=== PATIENT | female | born 1970 | race Caucasian/White ===

== ENCOUNTER → 2017-03-07 | Outpatient (CLI) | payer BC ==
--- NOTE | 2017-03-07 15:45 | Diagnostic Imaging Report ---
PROCEDURE:EXTREMITY ULTRASOUND COMPARISON:None. INDICATIONS:GROIN MASS TECHNIQUE:Grayscale and color Doppler ultrasound evaluation of the area of interest in right groin area was performed. FINDINGS: See conclusion. CONCLUSION: 3 x 3 x 3 mm subcutaneous indeterminate hypoechoic lesion in the medial superior right thigh with increased surrounding vascularity and possible internal flow on color Doppler. Alternatively, this could represent central necrosis of an approximately 1.2 x 0.6 cm mildly hypoechoic mass. Right lower extremity MRI with and without contrast can be obtained to better evaluate. Dictated by: Ladarius Alfaro M.D. on 03/07/2017 at 15:53 Electronically approved by: Ladarius Alfaro M.D. on 03/07/2017 at 15:53
== END ==
LOC: US 14:43
PROVIDERS: ATTEND Family Medicine
DX: R19.09 Other intra-abdominal and pelvic swelling, mass and lump (principal)
CPT/HCPCS: 76882

== ENCOUNTER → 2017-04-15 | Outpatient (CLI) | payer BC ==
[~2017-04-15] MED LIST: GADOBENATE DIMEGLUMINE 1 ML IV ONE
--- NOTE | 2017-04-15 11:43 | Diagnostic Imaging Report ---
EXAM: MRI PELVIS W WO CONTRAST INDICATION: Evaluation for possible right groin mass. COMPARISON: Ultrasound dated 03/07/2017. TECHNIQUE: Multiplanar and multisequence imaging was performed of the pelvis, before and after administration of 20 cc of MultiHance. DISCUSSION: GI TRACT: Visualized bowel loops are unremarkable. No evidence of bowel obstruction. PELVIS: Uterus is unremarkable. Normal zonal anatomy on sagittal T2-weighted images. No uterine mass. 2.2 x 1.2 cm right adnexal cyst without evidence of enhancement (series 5, image 33). Bladder is within normal limits. LYMPH NODES: No inguinal or pelvic sidewall lymphadenopathy. VESSELS: Unremarkable. BONES: Unremarkable. SOFT TISSUES: Unremarkable. IMPRESSION: No right groin mass. Subcutaneous medial superior right thigh lesion, noted on ultrasound dated 03/07/2017, is not visualized on today's exam, which might be resolved or outside the [id number]. Signed by: Dr. Ladarius Alfaro MD on 04/15/2017 11:39 AM
== END ==
LOC: MRI 07:31
PROVIDERS: ATTEND Family Medicine
DX: R19.09 Other intra-abdominal and pelvic swelling, mass and lump (principal)
CPT/HCPCS: 72197

== ENCOUNTER 2017-06-05 20:10 | Inpatient (IN) | payer BC ==
[~2017-06-05] VITALS: Ht 160 cm; Wt 106.7 kg
[2017-06-05] MEDS: SODIUM CHLORIDE 0.9% 1000ML 1,000 ML IV SCH (05:30)
--- OUTSIDE RECORDS SUMMARY | 2017-06-05 20:13 | XMS REPORT ---
Author Author Admin, [place] Organization [facility] Address Unknown Phone Unavailable Allergies, Adverse Reactions, Alerts Allergy Name Reaction Description Start Date Severity Status Provider CODEINE Critical Active Jorden Hahn MD Conditions or Problems Problem Name Problem Code Onset Date Status Entry Date Provider Comment Standard Description Annotate INSOMNIA DISORDER, EPISODIC Active Jorden Hahn MD Insomnia, unspecified DEPRESSIVE DISORDER, MAJOR, RECURRENT EPISODE, SEVERE Active Cristina Sharp LPC Major depressive disorder, recurrent episode, severe degree, without mention of psychotic behavior DEPRESSIVE DISORDER, UNSPECIFIED Active Cristina Sharp LPC ANXIETY DISORDER, UNSPECIFIED Active 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 Sharp 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 Anxiety state, unspecified Medication List Medication Instructions Start Date Stop Date Generic Name NDC Status Provider Patient Instruction BUSPIRONE HCL 10 MG ORAL TABLET Take 1 tab By Mouth Twice a Day BUSPIRONE HCL 75898771403 Active Jorden Hahn MD Active CYMBALTA 60 MG ORAL CAPSULE DELAYED RELEASE PARTICLES Take 1 tab By Mouth Every Morning DULOXETINE HCL 37584797891 Active Jorden Hahn MD Active KLONOPIN 0.5 MG ORAL TABLET Take 1 tab By Mouth every 8 hours As Needed for anxiety CLONAZEPAM 56340715019 Active Jorden Hahn MD Active LUNESTA 2 MG ORAL TABLET Take 1 tab By Mouth take at bedtime As Needed insomnia ESZOPICLONE 83813471468 Active Jorden Hahn MD Active LYRICA 50 MG ORAL CAPSULE PREGABALIN 67661973701 Active Jorden Hahn MD Active AMBIEN CR 6.25 MG ORAL TABLET EXTENDED RELEASE Take 1 tab By Mouth take at bedtime As Needed for insomnia ZOLPIDEM TARTRATE 85038038604 No Longer Active Jorden Hahn MD Active Vital Signs Date Name Value Unit Range Description blood pressure, diastolic 84 mm[Hg] BP nam blood pressure, systolic 125 mm[Hg] BP sys height E&M 62.50 [in_us] Bdy height pulse rate E&M 72 /min Heart rate weight E&M 225 [lb_av] Weight Measured blood pressure, diastolic 105 mm[Hg] BP nam blood pressure, systolic 162 mm[Hg] BP sys height E&M 62.50 [in_us] Bdy height pulse rate E&M 81 /min Heart rate weight E&M 229.80 [lb_av] Weight Measured Encounters Date Encounter Provider Code Facility 11:58:45 USER EXPERIENCE MANAGER Est Patient Exp Problem - 89579 Jorden Hahn MD CPT -56680 [facility] Procedures Code Procedure Name Date Entry Date Standard Description CPT-53777 Psychotherapy 45 (38-52*) min - 52445 (with patient and/or family member) 13:45:10 USER EXPERIENCE MANAGER CPT-91333 Psychotherapy 45 (38-52*) min - 03983 (with patient and/or family member) 16:00:40 USER EXPERIENCE MANAGER CPT-84036 Psychotherapy 45 (38-52*) min - 35959 (with patient and/or family member) 12:57:46 USER EXPERIENCE MANAGER CPT-44886 Diagnostic evaluation with medical - 23881 14:12:19 USER EXPERIENCE MANAGER CPT-84287 Psychotherapy 60 (53+*) min - 65212 (with patient and/or family member) 11:43:03 USER EXPERIENCE MANAGER CPT-05515 Psychotherapy 60 (53+*) min - 90010 (with patient and/or family member) 12:03:20 CDT CPT-68072 Psychotherapy 45 (38-52*) min - 08153 (with patient and/or family member) 13:59:49 CDT CPT-22344 Psychotherapy 45 (38-52*) min - 48928 (with patient and/or family member) 12:00:08 CDT CPT-33996 Diagnostic evaluation (no medical) - 40089 12:47:48 CDT
--- OUTSIDE RECORDS SUMMARY | 2017-06-05 20:13 | XMS REPORT | Clinical Summary ---
Author Author [facility] Organization [facility] Address Unknown Phone Unavailable Care Team Providers Care Header Up Name Role Phone Ledy George MD PCP Allergies Active Allergy Reactions Severity Noted Date Comments Codeine Itching Current Medications Prescription Sig. Disp. Refills Start End Date Status Date nitroglycerin (NITROSTAT) TK UTD PRN SUBLINGUAL 7 08/02/19 Active 0.4 MG SL tablet 17 levothyroxine (SYNTHROID, TK 1 T PO QD 5 07/30/19 Active LEVOXYL) 50 mcg tablet 17 TROKENDI XR 50 mg TK ONE C PO QD 3 07/29/19 Active capsule,extended release 17 24hr temazepam (RESTORIL) 15 TK 1 C PO QD HS PRN 2 08/02/19 Active mg capsule 17 metoprolol tartrate Take 25 mg by mouth 2 Active (LOPRESSOR) 25 mg tablet (two) times a day. aspirin 325 MG tablet Take 325 mg by mouth Active daily. FUROSEMIDE ORAL Take 10 mg by mouth. Active Active Problems Not on file Encounters Date Type Specialty Care Team Description 06/02/2017 Ancillary Edd Ramirez Left foot pain Orders MD Yenny 06/02/2017 Orders Only Ortho Sports Medicine Opal Johnson, Left foot pain (Primary MA Dx) 05/20/2017 Hospital Radiology Edd Ramirez Nondisp fx of 5th Encounter MD re Ramon unsp ft, init for opn fx 05/20/2017 Ancillary Radiology Edd Ramirez Nondisp fx of 5th Orders MD re Ramon unsp ft, init for opn fx 05/19/2017 Orders Only Ortho Sports Medicine Tip Christie MA 05/19/2017 Orders Only Ortho Sports Medicine Tip Christie MA Nondisp fx of 5th metatarsshaggy bone, unsp ft, init for opn fx (Primary Dx) 08/17/2016 Office Visit Neurology Severo Aragon MD Difficulty concentrating (Primary Dx); Numbness and tingling in both hands; Syncope, unspecified syncope type; Stenosis of intracranial vessel; Essential hypertension; Other hyperlipidemia; Coronary artery disease involving other coronary artery bypass graft 08/17/2016 Telephone Neurology Severo Aragon MD after 06/04/2016 Family History Medical History Relation Name Comments Heart attack Father Heart disease Father Diabetes Mother Heart attack Mother Heart disease Mother Relation Name Status Comments Father Mother Social History Tobacco Use Types Packs/Day Years Used Date Never Smoker Smokeless Tobacco: Never Used Alcohol Use Drinks/Week oz/Week Comments No Sex Assigned at Date Recorded Not on file Last Filed Vital Signs Vital Sign Reading Time Taken Blood Pressure 144/83 08/17/2016 12:45 PM CDT Pulse 44 08/17/2016 12:45 PM CDT Temperature - - Respiratory Rate - - Oxygen Saturation - - Inhaled Oxygen - - Concentration Weight 107 kg (235 lb 11.2 oz) 08/17/2016 12:45 PM CDT Height 160 cm (5' 3") 08/17/2016 12:45 PM CDT Body Mass Index 41.75 08/17/2016 12:45 PM CDT Plan of Treatment Date Type Specialty Care Team Description 06/08/2017 Office Visit [place] [address] [place] [id number] Health Maintenance Due Date Last Done Comments PAP SMEAR 01/05/1989 INFLUENZA VACCINE 09/07/2017 Results * XR Foot 3+ Vw Left (05/20/2017 11:30 AM) Specimen Performing Laboratory [facility] [address] [place] [address] Narrative EXAMINATION:XR FOOT 3VW LEFT CLINICAL HISTORY:S92.356B Nondisplaced fracture of fifth metatarsal bone unspecified footinitial encounter for open fracture, FRACTUREFOOT COMPARISON:None. IMPRESSION: There is a subacute fracture of the midportion of the left fifth metatarsal. There is no angulation or displacement. It is being to be some callus formation present although a fracture line is still identified. Clinical correlation is recommended as well as comparison to any prior old films [facility]-[id number] Procedure Note Hm Interface, Radiology Results Incoming - 05/20/2017 2:45 PM CDT EXAMINATION: XR FOOT 3 VW LEFT CLINICAL HISTORY: S92.356B Nondisplaced fracture of fifth metatarsal bone unspecified foot initial encounter for open fracture, FRACTURE FOOT COMPARISON: None. IMPRESSION: There is a subacute fracture of the midportion of the left fifth metatarsal. There is no angulation or displacement. It is being to be some callus formation present although a fracture line is still identified. Clinical correlation is recommended as well as comparison to any prior old films [facility]-[id number] after 06/04/2016 Insurance Payer Benefit Subscriber ID Type Phone Address Plan / Group BCBS BCBS xxxxxxxxxxxx PPO CHOICE PPO/TANYA CHAVEZ PPO
--- OUTSIDE RECORDS SUMMARY | 2017-06-05 20:13 | XMS REPORT ---
Author Author [facility] Address Unknown Phone Unavailable Care Team Providers Care Tuber Operator Name Role Phone TAYLER BELTRAN Unavailable Unavailable Problems This patient has no known problems. Allergies, Adverse Reactions, Alerts This patient has no known allergies or adverse reactions. Medications This patient has no known medications. Results Test Description Test Time Test Comments Text Results Atomic Results Result Comments MRI PELVIS WOW [place] [address] Patient Name: HAN PAGAN MR #: [id number] : 1970 Age/Sex: 47/F Req # : [id number] Adm Physician: Ordered by: TAYLER BELTRAN DO Report #: [id number] Location: MRI Room/Bed: Procedure: [id number] MRI/MRI PELVIS WOW Exam Date: Exam Time: REPORT STATUS: Signed EXAM: MRI PELVIS W WO CONTRAST INDICATION: Evaluation for possible right groin mass. COMPARISON: Ultrasound dated . TECHNIQUE: Multiplanar and multisequence imaging was performed of the pelvis, before and after administration of 20 cc of MultiHance. DISCUSSION: GI TRACT: Visualized bowel loops are unremarkable. No evidence of bowel obstruction. PELVIS: Uterus is unremarkable. Normal zonal anatomy on sagittal T2-weighted images. No uterine mass. 2.2 x 1.2 cm right adnexal cyst without evidence of enhancement (series 5, image 33). Bladder is within normal limits. LYMPH NODES: No inguinal or pelvic sidewall lymphadenopathy. VESSELS: Unremarkable. BONES: Unremarkable. SOFT TISSUES: Unremarkable. IMPRESSION: No right groin mass. Subcutaneous medial superior right thigh lesion, noted on ultrasound dated 03/07/2017, is not visualized on today's exam, which might be resolved or outside the [id number]. Signed by: Dr. Ladarius Rachel MD on 2017 11:39 AM Dictated By: LADARIUS RACHEL MD 113 Transcribed By: MOHSEN on 04/15/171138 COPY TO: TAYLER BELTRAN DO US EXTREMITY PERALES NON-VAS [place] [address] Patient Name: HAN PAGAN MR #: [id number] : 1970 Age/Sex: 47/F Req #: [id number] Adm Physician: Ordered by: TAYLER BELTRAN DO Report #: [id number] Location: US Room/Bed: Procedure: [id number] US/US EXTREMITY PERALES NON-VAS Exam Date: Exam Time: REPORT STATUS: Signed PROCEDURE: EXTREMITY ULTRASOUND COMPARISON: None. INDICATIONS: GROIN MASS TECHNIQUE: Grayscale and color Doppler ultrasound evaluation of the area of interest in right groin area was performed. FINDINGS: See conclusion. CONCLUSION: 3 x 3 x 3 mm subcutaneous indeterminate hypoechoic lesion in the medial superior right thigh with increased surrounding vascularity and possible internal flow on color Doppler. Alternatively, this could represent central necrosis of an approximately 1.2 x 0.6 cm mildly hypoechoic mass. Right lower extremity MRI with and without contrast can be obtained to better evaluate. Dictated by: Ladarius Rachel M.D. on 03/07/2017 at 15:53 Electronically approved by: Ladarius Rachel M.D. on 03/07/2017 at 15:53 Dictated By: LADARIUS RACHEL MD 1553 Transcribed By: JHON on 03/07/17 5404 COPY TO: TAYLER BELTRAN DO
[2017-06-05] MEDS ORDERED: METOPROLOL SUCC25 MG PO (20:43)
[2017-06-05] MEDS ORDERED: CRESTOR10 MG PO (20:43)
[2017-06-05] MEDS ORDERED: CLONAZEPAM0.5 MG PO (20:43)
[2017-06-05] MEDS ORDERED: LUNESTA3 MG PO (20:43)
[2017-06-05] MEDS ORDERED: BUSPIRONE HCL5 MG PO (20:43)
[2017-06-05] MEDS ORDERED: CYMBALTA20 MG PO (20:43)
[2017-06-05] MEDS ORDERED: KETOROLAC TROMETHAMINE 30 MG/ML VIAL IV STA (20:47)
[2017-06-05] MEDS ORDERED: KETOROLAC TROMETHAMINE 60 MG/2 ML VIAL IM ONE (21:30)
[2017-06-05 21:49] LABS: BASOPHILS # (AUTO) 0.1 (0.0-0.1); BASOPHILS % 0.5 % (0.0-1.0); EOSINOPHILS # (AUTO) 0.3 (0.0-0.4); EOSINOPHILS % 3.6 % (0.0-6.0); HEMATOCRIT 34.7 % (34.2-44.1); HEMOGLOBIN 10.8 g/dL (12.0-16.0); LYMPHOCYTES # (AUTO) 1.8 (1.0-3.2); LYMPHOCYTES % 19.8 % (18.0-39.1); MEAN CORPUSCULAR HEMOGLOBIN 26.7 pg (28-32); MEAN CORPUSCULAR HGB CONC 31.1 g/dL (31-35); MEAN CORPUSCULAR VOLUME 85.7 fL (81-99); MONOCYTES # (AUTO) 1.3 (0.2-0.8); MONOCYTES % 13.5 % (4.4-11.3); NEUTROPHILS # (AUTO) 5.8 (2.1-6.9); NEUTROPHILS % 62.4 % (38.7-80.0); PLATELET COUNT 222 x10e3/uL (140-360); RED BLOOD COUNT 4.05 x10e6/uL (3.6-5.1); RED CELL DISTRIBUTION WIDTH 14.9 % (11.7-14.4)
[2017-06-05 21:59] LABS: CLARITY,URINE SL CLOUDY (CLEAR); COLOR,URINE YELLOW (YELLOW)
[2017-06-05 22:00] LABS: BILIRUBIN,URINE 1+ (NEGATIVE); KETONES,URINE NEGATIVE (NEGATIVE); LEUKOCYTE ESTERASE ,URINE NEGATIVE (NEGATIVE); NITRITE,URINE NEGATIVE (NEGATIVE); PROTEIN,URINE DIPSTICK 1+ (NEGATIVE); URINE UROBILINOGEN 0.2 mg/dL (0.2 - 1)
[2017-06-05 22:14] LABS: RBC,URINE >50 /HPF (0-5)
[2017-06-05 22:18] LABS: BACTERIA,URINE RARE /HPF; WBC,URINE (MAN) 0-5 /HPF (0-5)
[2017-06-05 22:19] LABS: CALCIUM OXALATE CRYSTALS,UR FEW (FEW)
[2017-06-05 22:20] LABS: ALBUMIN 3.3 g/dL (3.5-5.0); ANION GAP 12.2 mmol/L (8-16); CALCIUM 8.6 mg/dL (8.4-10.2); CREATININE, SERUM 0.99 mg/dL (0.57-1.11); POTASSIUM 4.2 mmol/L (3.5-5.1)
--- NOTE | 2017-06-05 22:32 | Diagnostic Imaging Report ---
EXAM: CT Abdomen and Pelvis WITHOUT contrast INDICATION: Flank pain, stone COMPARISON: None. TECHNIQUE: Abdomen and pelvis were scanned utilizing a multidetector helical scanner from the lung base to the pubic symphysis without administration of IV contrast. Absence of intravenous contrast decreases sensitivity for detection of focal lesions and vascular pathology. Coronal and sagittal reformations were obtained. Stone protocol is performed. IV CONTRAST: None. ORAL CONTRAST: None RADIATION DOSE: Total DLP: 782.17 mGy*cm Estimated effective dose: (DLP x 0.015 x size factor) mSv COMPLICATIONS: None FINDINGS: LINES and TUBES: None. LOWER THORAX: Unremarkable HEPATOBILIARY: No focal hepatic lesions. No biliary ductal dilation. GALLBLADDER: There are cholecystectomy clips. SPLEEN: No splenomegaly. PANCREAS: No focal masses or ductal dilatation. ADRENALS: No adrenal nodules KIDNEYS/URETERS: Right-sided hydroureteronephrosis secondary to a 6 mm stone in the distal right ureter best seen on series 3, image 139 and coronal series 401, image 52. No cystic or solid mass lesions. GI TRACT: Postsurgical changes related to bariatric surgery of the stomach. No abnormal distention, wall thickening, or evidence of bowel obstruction. There are diverticula within the colon without evidence of diverticulitis. Appendix is normal. PELVIC ORGANS/BLADDER: Unremarkable. LYMPH NODES: No lymphadenopathy. VESSELS: There is mild atherosclerotic disease in the aorta and major arterial branches. PERITONEUM / RETROPERITONEUM: No free air or fluid. BONES: Unremarkable. SOFT TISSUES: Unremarkable. IMPRESSION: 1. Obstructive 6 mm stone in the distal right ureter with developing moderate to severe hydroureteronephrosis. Signed by: Dr. Edd Whiteside M.D. on 06/05/2017 10:29 PM
[2017-06-05] MEDS ORDERED: CEFTRIAXONE SOD 1 GM VIAL IV SCH (23:15)
[2017-06-05] MEDS ORDERED: ONDANSETRON HCL INJ 2 MG/ML VIAL IV PRN (23:15)
[2017-06-05 23:16] LABS: EPITHELIAL CELLS,URINE RARE /LPF
--- OUTSIDE RECORDS SUMMARY | 2017-06-05 23:19 | XMS REPORT | Clinical Summary ---
Author Author [facility] Organization [facility] Address Unknown Phone Unavailable Care Team Providers Care Bookstore Manager Name Role Phone Ledy George MD PCP [...] [place] [address] [place] [id number] Health Maintenance Due Date Last Done Comments PAP SMEAR 01/05/1989 INFLUENZA VACCINE 09/07/2017 Results * XR Foot 3+ Vw Left (05/20/2017 11:30 AM) Specimen Performing Laboratory [facility] [address] [place] [address] Narrative EXAMINATION:XR FOOT 3VW LEFT CLINICAL HISTORY:S92.356B [...] as comparison to any prior old films [facility]-[id number] Procedure Note Hm Interface, Radiology Results Incoming [...] as comparison to any prior old films [facility]-[id number] after 06/04/2016 Insurance Payer Benefit Subscriber ID Type Phone Address Plan / Group BCBS BCBS xxxxxxxxxxxx PPO CHOICE PPO/TANYA CHAVEZ PPO
--- OUTSIDE RECORDS SUMMARY | 2017-06-05 23:20 | XMS REPORT ---
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 Anxiety state, unspecified Medication List Medication Instructions Start Date Stop Date Generic Name NDC Status Provider Patient Instruction BUSPIRONE HCL 10 MG ORAL TABLET Take 1 tab By Mouth Twice a Day BUSPIRONE HCL 49753423244 Active Jorden Hahn MD Active CYMBALTA 60 MG ORAL CAPSULE DELAYED RELEASE PARTICLES Take 1 tab By Mouth Every Morning DULOXETINE HCL 69607440174 Active Jorden Hahn MD Active KLONOPIN 0.5 MG ORAL TABLET Take 1 tab By Mouth every 8 hours As Needed for anxiety CLONAZEPAM 65611829306 Active Jorden Hahn MD Active LUNESTA 2 MG ORAL TABLET Take 1 tab By Mouth take at bedtime As Needed insomnia ESZOPICLONE 02698708610 Active Jorden Hahn MD Active LYRICA 50 MG ORAL CAPSULE PREGABALIN 08948231093 Active Jorden Hahn MD Active AMBIEN CR 6.25 MG ORAL TABLET EXTENDED RELEASE Take 1 tab By Mouth take at bedtime As Needed for insomnia ZOLPIDEM TARTRATE 77953571225 No Longer Active Jorden Hahn MD Active [...] Encounters Date Encounter Provider Code Facility 11:58:45 HUMAN RESOURCES VICE PRESIDENT Est Patient Exp Problem - 15382 Jorden Hahn MD CPT -10004 [facility] Procedures Code Procedure Name Date Entry Date Standard Description CPT-90876 Psychotherapy 45 (38-52*) min - 76766 (with patient and/or family member) 13:45:10 HUMAN RESOURCES VICE PRESIDENT CPT-04628 Psychotherapy 45 (38-52*) min - 52122 (with patient and/or family member) 16:00:40 HUMAN RESOURCES VICE PRESIDENT CPT-67862 Psychotherapy 45 (38-52*) min - 00109 (with patient and/or family member) 12:57:46 HUMAN RESOURCES VICE PRESIDENT CPT-80201 Diagnostic evaluation with medical - 22303 14:12:19 HUMAN RESOURCES VICE PRESIDENT CPT-54696 Psychotherapy 60 (53+*) min - 22684 (with patient and/or family member) 11:43:03 HUMAN RESOURCES VICE PRESIDENT CPT-91527 Psychotherapy 60 (53+*) min - 72020 (with patient and/or family member) 12:03:20 CDT CPT-21954 Psychotherapy 45 (38-52*) min - 38792 (with patient and/or family member) 13:59:49 CDT CPT-45910 Psychotherapy 45 (38-52*) min - 88120 (with patient and/or family member) 12:00:08 CDT CPT-73634 Diagnostic evaluation (no medical) - 83613 12:47:48 CDT
[2017-06-06] VITALS (9 sets, daily range): BP systolic 94–168; BP diastolic 51–78
[2017-06-06] MEDS ORDERED: LYRICA50 MG PO (01:53)
[2017-06-06] MEDS ORDERED: LEVOTHYROXINE50 MCG PO (01:53)
--- NOTE | 2017-06-06 03:11 | Diagnostic Imaging Report ---
EXAMINATION: CHEST XRAY LINE PLACEMENT INDICATION: PICC line placement COMPARISON: None FINDINGS: TUBES and LINES: Right upper extremity PICC line is visualized with catheter tip at the level of the right innominate junction and origin of the IVC LUNGS: Lungs are well inflated. Lungs are clear. There is no evidence of pneumonia or pulmonary edema. PLEURA: No pleural effusion or pneumothorax. HEART AND MEDIASTINUM: Cardiac size is mildly enlarged. Midline sternotomy wires are intact. BONES AND SOFT TISSUES: No acute osseous lesion. Soft tissues are unremarkable. UPPER ABDOMEN: No free air under the diaphragm. IMPRESSION: 1. No acute thoracic abnormality. 2. Right upper extremity PICC line with tip at the junction of the right innominate vein and origin of the IVC. Minimal advancement is recommended Signed by: Dr. Edd Whiteside M.D. on 06/06/2017 3:07 AM
--- NOTE | 2017-06-06 04:28 | Diagnostic Imaging Report ---
EXAMINATION: CHEST XRAY LINE PLACEMENT INDICATION: PICC line placement COMPARISON: 06/06/2017 at 2:56 AM FINDINGS: TUBES and LINES: Right upper extremity PICC line has been advanced with distal tip at the proximal SVC. LUNGS: Lungs are well inflated. Lungs are clear. There is no evidence of pneumonia or pulmonary edema. PLEURA: No pleural effusion or pneumothorax. HEART AND MEDIASTINUM: Cardiac size is moderately enlarged. There are atherosclerotic calcifications within the aorta. BONES AND SOFT TISSUES: No acute osseous lesion. Soft tissues are unremarkable. UPPER ABDOMEN: No free air under the diaphragm. IMPRESSION: No acute thoracic abnormality. Signed by: Dr. Edd Whiteside M.D. on 06/06/2017 4:25 AM
[2017-06-06] MEDS: HYDROMORPHONE 1MG/1ML INJ IV PRN ×4 (04:55→20:18)
[2017-06-06 05:53] LABS: BASOPHILS # (AUTO) 0.1 (0.0-0.1); BASOPHILS % 0.6 % (0.0-1.0); EOSINOPHILS # (AUTO) 0.4 (0.0-0.4); EOSINOPHILS % 4.2 % (0.0-6.0); HEMATOCRIT 34.4 % (34.2-44.1); HEMOGLOBIN 10.8 g/dL (12.0-16.0); LYMPHOCYTES % 24.1 % (18.0-39.1); MEAN CORPUSCULAR HGB CONC 31.4 g/dL (31-35); MONOCYTES # (AUTO) 1.1 (0.2-0.8); MONOCYTES % 13.1 % (4.4-11.3); NEUTROPHILS # (AUTO) 4.8 (2.1-6.9); NEUTROPHILS % 57.6 % (38.7-80.0); PLATELET COUNT 234 x10e3/uL (140-360); RED CELL DISTRIBUTION WIDTH 14.8 % (11.7-14.4)
[2017-06-06 06:20] LABS: ALBUMIN 3.3 g/dL (3.5-5.0); ALBUMIN/GLOBULIN RATIO 1.2 (0.8-2.0); ANION GAP 12.2 mmol/L (8-16); CALCIUM 8.6 mg/dL (8.4-10.2); CREATININE, SERUM 1.01 mg/dL (0.57-1.11); POTASSIUM 4.2 mmol/L (3.5-5.1)
[2017-06-06] MEDS: SODIUM CHLORIDE 0.9% 1000ML 1,000 ML IV SCH ×3 (07:06→23:55)
[2017-06-06] MEDS ORDERED: IOPAMIDOL 610MG/1ML 300 MG/ML VIAL IV ONE (12:02)
--- NOTE | 2017-06-06 13:11 | Operative Report ---
DATE OF PROCEDURE: June 06, 2017 PREOPERATIVE DIAGNOSIS 1. Right hydronephrosis. 2. Microscopic hematuria. POSTOPERATIVE DIAGNOSIS 1. Right hydronephrosis. 2. Microscopic hematuria. PROCEDURES 1. Cystourethroscopy with left ureteral catheterization and left retrograde pyelogram (entirely separate procedure for the microscopic hematuria). 2. Cystourethroscopy with the insertion of a right indwelling ureteral stent (entirely separate procedure for the diagnosis of right hydronephrosis). 3. Supervision of fluoroscopy. 4. Interpretation of retrograde pyelography. ANESTHESIA: General. ESTIMATED BLOOD LOSS: Minimal. COMPLICATIONS: None. INDICATIONS FOR PROCEDURE: Ms. Dalton is a 47-year-old female with a very large obstructing distal ureteral calculus. She and I had a long discussion regarding the alternatives, risks and benefits. She voiced understanding of the options, of the alternatives, of the risks and the benefits and elected to proceed. PROCEDURE IN DETAIL: After informed consent was obtained, the patient was taken to the operative suite and placed supine on the operating table and underwent general anesthesia by the anesthesia service. She was then placed in the dorsal lithotomy position and sterilely prepped and draped in the standard fashion for cystoscopy. A 22.5-Irish cystoscope was inserted per urethra, and a normal urethra was noted. Panendoscopy of the bladder revealed no tumors, no stones. Both ureteral orifices were in their normal anatomical location and position and were seen to efflux clear urine. Bilateral retrograde pyelograms were performed. The left revealed normal. The right revealed a 6 x 7 mm distal ureteral calculus with proximal hydronephrosis. Postoperative views on the right side revealed the stent in good position. The bladder was drained, and the patient was awakened from anesthesia and transported to the recovery room in excellent condition. SUPERVISION OF FLUOROSCOPY AND INTERPRETATION OF RETROGRADE PYELOGRAPHY: I was present throughout the entire procedure, and I supervised the use of fluoroscopy. There was no radiologist present. Attention was turned toward the left and right ureteral orifices, which were catheterized with an 8-Irish cone-tipped catheter. In a retrograde fashion, contrast was injected, revealing delicate ureters, delicate bilateral caliceal systems on the left. On the right, there was a 6 x 7 mm distal ureteral calculus with proximal hydronephrosis and a stent in adequate position. IMPRESSION 1. Right ureteral calculus. 2. Right hydronephrosis. 3. Right ureteral stent in adequate position. 4. Normal left retrograde pyelogram. Job#: [id number] EV cc:NALDO BELTRAN DO
[2017-06-06] MEDS ORDERED: CLONAZEPAM 0.5 MG TAB PO PRN (14:15)
[2017-06-06] MEDS ORDERED: ONDANSETRON HCL INJ 2 MG/ML VIAL ONE (17:37)
[2017-06-06] MEDS ORDERED: DEXAMETHASONE SOD PHOS INJ 4 MG/ML VIAL ONE (17:37)
[2017-06-06] MEDS ORDERED: PROPOFOL IV EMULSION 10 MG/ML 20 ML VIAL ONE (17:37)
[2017-06-06] MEDS ORDERED: LIDOCAINE HCL 2% LOCAL INJ 5 ML SDV VIAL INJ ONE (17:37)
[2017-06-06] MEDS ORDERED: SEVOFLURANE INHAL SOLN 250 ML PEN BTL ONE (17:37)
[2017-06-06] MEDS ORDERED: FENTANYL CITRATE/PF 100MCG/2 ML INJ ONE (17:46)
[2017-06-06] MEDS ORDERED: MIDAZOLAM HCL 2 MG/2 ML VIAL ONE (17:46)
[2017-06-06] MEDS: METOPROLOL SUCCINATE 25 MG TAB XL PO SCH (20:17)
[2017-06-06] MEDS: PREGABALIN 50 MG CAP PO SCH (20:17)
[2017-06-06] MEDS: BUSPIRONE HCL 5 MG TAB PO SCH (20:17)
[2017-06-06] MEDS: SIMVASTATIN 20 MG TAB PO SCH (20:18)
[2017-06-06] MEDS ORDERED: NON-FORMULARY MEDICATION (Eszopiclone (Lunesta) 3 MG) PO SCH (21:00)
--- NOTE | 2017-06-06 21:01 | Consultation ---
DATE OF CONSULTATION: June 06, 2017 UROLOGY CONSULTATION REASON FOR CONSULTATION: Kidney stones and colic. HISTORY OF PRESENT ILLNESS: Ms. Dalton is a very pleasant, 47-year-old female with acute onset of sharp, severe right-sided flank pain. She denied dysuria. She had gross hematuria. PAST MEDICAL HISTORY: Significant for hypertension, OH, anxiety, hyperlipidemia, cholecystectomy, CABG, PCI. MEDICATIONS: Please see MAR. ALLERGIES: NKDA. SOCIAL HISTORY: She does not smoke or drink. FAMILY HISTORY: Denied urologic stones or malignancies. PHYSICAL EXAMINATION: GENERAL: An elderly female in no acute distress. VITALS: Temperature 97.9. Pulse 85. Respirations 18. Blood pressure 128/59. HEENT: Sclerae not icteric. NECK: Supple. BACK: Without costovertebral angle tenderness bilaterally. ABDOMEN: Soft, obese, nontender, nondistended. No masses. No palpable hernias. No palpable lymphadenopathy. : Normal female genitalia. EXTREMITIES: No edema. NEURO: Moves 4 extremities. PSYCH: Alert and oriented. SKIN: Intact. Normal color. PERTINENT LABORATORY DATA: CT scan revealing a 6 mm right distal ureteral calculus, right hydronephrosis. CBC was normal except for hemoglobin 10.8. BNP was normal except for mild hypochloremia at 111. Urinalysis 50 to 100 reds, 0 to 5 whites. IMPRESSION: 1. Right ureteral calculus. 2. Right hydronephrosis. 3. Microscopic hematuria. 4. Question of urinary tract infection. 5. Anemia. 6. Hypochloremia. 7. Obesity. 8. Renal colic. 9. Coagulopathy, medically induced. PLAN: The patient will need stenting. I will place a stent and have the patient follow up as an outpatient for elective ureteroscopy as an outpatient. Thank you for allowing me to participate in the care of your patient. We will be happy to follow along with you. Job#: [id number]
[2017-06-06] MEDS: ZOLPIDEM TARTRATE 10 MG TAB PO SCH (21:50)
[2017-06-06] MEDS ORDERED: MAGNESIUM/ALUMINUM/SIMETHICONE 30 ML UDC PO PRN (22:15)
[2017-06-06] MEDS: PANTOPRAZOLE SOD 40 MG TABEC PO SCH (22:44)
[2017-06-07] VITALS (8 sets, daily range): BP systolic 109–191; BP diastolic 57–86
[2017-06-07] MEDS: HYDROMORPHONE 1MG/1ML INJ IV PRN ×5 (01:16→19:51)
[2017-06-07] MEDS: CEFTRIAXONE SOD 1 GM VIAL IV SCH (04:39)
[2017-06-07] MEDS: LEVOTHYROXINE SODIUM 50 MCG TAB PO SCH (05:29)
[2017-06-07] MEDS ORDERED: TRAMADOL HCL 50 MG TAB PO PRN (07:30)
[2017-06-07] MEDS: BUSPIRONE HCL 5 MG TAB PO SCH ×2 (07:45→21:22)
[2017-06-07] MEDS: PREGABALIN 50 MG CAP PO SCH ×2 (07:45→21:22)
[2017-06-07] MEDS: METOPROLOL SUCCINATE 25 MG TAB XL PO SCH ×2 (07:45→21:22)
[2017-06-07] MEDS: PANTOPRAZOLE SOD 40 MG TABEC PO SCH (07:45)
[2017-06-07] MEDS: DULOXETINE HCL 30 MG DELAYED RELEASE PO SCH (07:45)
[2017-06-07] MEDS ORDERED: SIMVASTATIN 40 MG TAB PO SCH (09:00)
[2017-06-07] MEDS ORDERED: DULOXETINE HCL 20 MG DELAYED RELEASE PO SCH (09:00)
[2017-06-07] MEDS: SODIUM CHLORIDE 0.9% 1000ML 1,000 ML IV SCH ×2 (09:53→21:39)
[2017-06-07] MEDS: HYDROCODONE/APAP 7.5MG-325MG 1 EA TAB PO PRN ×2 (14:07→18:09)
[2017-06-07] MEDS: SIMVASTATIN 20 MG TAB PO SCH (21:22)
[2017-06-07] MEDS: ZOLPIDEM TARTRATE 10 MG TAB PO SCH (21:22)
[2017-06-08] VITALS: BP 136/59
[2017-06-08] MEDS: HYDROCODONE/APAP 7.5MG-325MG 1 EA TAB PO PRN ×2 (02:30→08:20)
[2017-06-08] MEDS: HYDROMORPHONE 1MG/1ML INJ IV PRN ×2 (03:37→11:40)
[2017-06-08 04:00] VITALS: BP 145/65
[2017-06-08] MEDS: LEVOTHYROXINE SODIUM 50 MCG TAB PO SCH (05:43)
[2017-06-08] MEDS: SODIUM CHLORIDE 0.9% 1000ML 1,000 ML IV SCH ×2 (05:43→13:33)
[2017-06-08] MEDS: CEFTRIAXONE SOD 1 GM VIAL IV SCH (05:43)
[2017-06-08 08:02] VITALS: BP 132/61
[2017-06-08 08:20] VITALS: BP 132/61
[2017-06-08] MEDS: DULOXETINE HCL 30 MG DELAYED RELEASE PO SCH (08:20)
[2017-06-08] MEDS: BUSPIRONE HCL 5 MG TAB PO SCH (08:20)
[2017-06-08] MEDS: METOPROLOL SUCCINATE 25 MG TAB XL PO SCH (08:20)
[2017-06-08] MEDS: PANTOPRAZOLE SOD 40 MG TABEC PO SCH (08:20)
[2017-06-08] MEDS: PREGABALIN 50 MG CAP PO SCH (08:21)
[2017-06-08] MEDS ORDERED: ONDANSETRON HCL 4 MG ORAL DISINTEGRATING TAB PO PRN (11:30)
[2017-06-08] MEDS: OXYBUTYNIN CHLORIDE 5 MG TAB PO SCH ×2 (11:40→16:54)
[2017-06-08 12:54] VITALS: BP 108/52
[2017-06-08] MEDS: METHOCARBAMOL 500 MG TAB PO SCH ×2 (13:30→17:55)
[2017-06-08] MEDS: HYDROCODONE/APAP 10MG-325MG TAB PO PRN ×2 (13:33→17:55)
[2017-06-08] MEDS ORDERED: ULTRAM50 MG PO (16:05)
[2017-06-08] MEDS ORDERED: ceftin PO (16:09)
[2017-06-08] MEDS ORDERED: robaxin PO (16:09)
[2017-06-08] MEDS ORDERED: NORCO 10-325 T1 EACH PO (16:10)
[2017-06-08] MEDS ORDERED: ditropan PO (16:12)
[2017-06-08 16:48] VITALS: BP 129/60
[2017-06-15] MEDS ORDERED: ASPIRIN325 MG PO (11:23)
== END 2017-06-08 18:40 | disposition home or self-care (01) | DRG 660 ==
LOC: ER 20:10 → ERHOLD 23:17 → MED/SURG 06-06 00:08
PROC: 0T778ZZ Dilation of Left Ureter, Via Natural or Artificial Opening Endoscopic (ICD-10-PCS; 2017-06-06)
PROC: BT141ZZ Fluoroscopy of Kidneys, Ureters and Bladder using Low Osmolar Contrast (ICD-10-PCS; 2017-06-06)
PROC: 02HV33Z Insertion of Infusion Device into Superior Vena Cava, Percutaneous Approach (ICD-10-PCS; 2017-06-06)
PROC: B5181ZA Fluoroscopy of Superior Vena Cava using Low Osmolar Contrast, Guidance (ICD-10-PCS; 2017-06-06)
PROC: 05H333Z Insertion of Infusion Device into Right Innominate Vein, Percutaneous Approach (ICD-10-PCS; 2017-06-06)
PROC: B51M1ZA Fluoroscopy of Right Upper Extremity Veins using Low Osmolar Contrast, Guidance (ICD-10-PCS; 2017-06-06)
PROC: 0T768DZ Dilation of Right Ureter with Intraluminal Device, Via Natural or Artificial Opening Endoscopic (ICD-10-PCS; principal; 2017-06-06 10:00)
DX: N13.2 Hydronephrosis with renal and ureteral calculous obstruction (principal); D68.8 Other specified coagulation defects; Z68.41 Body mass index [BMI] 40.0-44.9, adult; I25.10 Atherosclerotic heart disease of native coronary artery without angina pectoris; Z95.1 Presence of aortocoronary bypass graft; Z95.5 Presence of coronary angioplasty implant and graft; I25.2 Old myocardial infarction; E78.5 Hyperlipidemia, unspecified; E87.8 Other disorders of electrolyte and fluid balance, not elsewhere classified; D64.9 Anemia, unspecified; R31.29 Other microscopic hematuria; Z98.84 Bariatric surgery status; E66.9 Obesity, unspecified
CPT/HCPCS: 36415; 36569; 71045; 74176; 74420; 80053; 81001; 81025; 82150; 83690; 85025; 87086; 93005; 96372; 99284; J0696; J1100; J1170; J1885; J2001; J2250; J2405; J7030

== ENCOUNTER 2017-06-20 12:59 | Emergency (ER) | payer BC ==
[~2017-06-20] VITALS: Ht 160 cm; Wt 106.6 kg
[~2017-06-20 12:59] MED LIST changes: -CEFTRIAXONE SOD 1 GM VIAL ONE; -DEXAMETHASONE SOD PHOS INJ 4 MG/ML VIAL ONE; -EPHEDRINE SULFATE INJ 50 MG/10 ML SYR ONE; -FENTANYL CITRATE/PF 100MCG/2 ML INJ ONE; -IOPAMIDOL 610MG/1ML 300 MG/ML VIAL IV ONE; -LIDOCAINE HCL 2% LOCAL INJ 5 ML SDV VIAL INJ ONE; -MIDAZOLAM HCL 2 MG/2 ML VIAL ONE; -ONDANSETRON HCL INJ 2 MG/ML VIAL ONE; -PROPOFOL IV EMULSION 10 MG/ML 20 ML VIAL ONE; -SEVOFLURANE INHAL SOLN 250 ML PEN BTL ONE
--- OUTSIDE RECORDS SUMMARY | 2017-06-20 13:02 | XMS REPORT | Clinical Summary ---
Author Author [facility] Organization [facility] Address Unknown Phone Unavailable Care Team Providers Care Oxygen Therapy Teacher Name Role Phone Ledy George MD PCP [...] [place] [address] [facility] [address] [place] [address] Health Maintenance Due Date Last Done Comments PAP SMEAR 01/05/1989 INFLUENZA VACCINE 09/07/2017 Results * XR Foot 3+ Vw Left (06/13/2017 3:37 PM) Only the most recent of 2 results within the time period is included. Specimen Performing Laboratory [facility] [address] [place] [address] Narrative EXAMINATION:XR FOOT 3VW LEFT CLINICAL HISTORY:M79.672 Pain in left foot, BONE PAINFOOT COMPARISON:Left foot series 05/20/2017 IMPRESSION: AP, lateral, and oblique views reveal the previously described fracture at the fifth metatarsal without interval change in apposition or alignment of the fracture fragments. The remainder of the examination is unchanged. [facility]-[id number] Procedure Note Interface, Radiology Results Incoming - [...] The remainder of the examination is unchanged. [facility]-[id number] after 06/19/2016 Insurance Payer Benefit Subscriber ID Type Phone Address Plan / Group BCBS BCBS xxxxxxxxxxxx PPO CHOICE P[place] [address]
--- OUTSIDE RECORDS SUMMARY | 2017-06-20 13:03 | XMS REPORT ---
Author Author Admin, [place] Organization [facility] Address Unknown Phone Unavailable Allergies, Adverse Reactions, Alerts Allergy Name Reaction Description Start Date Severity Status Provider CODEINE Critical Active Jorden Hahn MD Conditions or Problems Problem Name Problem Code Onset Date Status Entry Date Provider Comment Standard Description Annotate INSOMNIA DISORDER, EPISODIC Active Jorden Hanh MD Insomnia, unspecified DEPRESSIVE DISORDER, MAJOR, RECURRENT EPISODE, SEVERE Active Cristina Sharp LPC Major depressive disorder, recurrent episode, severe degree, without mention of psychotic behavior DEPRESSIVE DISORDER, UNSPECIFIED Active Cristina Sharp LPC ANXIETY DISORDER, UNSPECIFIED Active Cristina Sharp [employer]LECT[employer]IC[employer] SECOND Anxiety state, unspecified Medication List Medication Instructions Start Date Stop Date Generic Name NDC Status Provider Patient Instruction BUSPIRONE HCL 10 MG ORAL TABLET Take 1 tab By Mouth Twice a Day BUSPIRONE HCL 44330406888 Active Jorden Hahn MD Active CYMBALTA 60 MG ORAL CAPSULE DELAYED RELEASE PARTICLES Take 1 tab By Mouth Every Morning DULOXETINE HCL 09828370005 Active Jorden Hahn MD Active KLONOPIN 0.5 MG ORAL TABLET Take 1 tab By Mouth every 8 hours As Needed for anxiety CLONAZEPAM 78225124347 Active Jorden Hahn MD Active LUNESTA 2 MG ORAL TABLET Take 1 tab By Mouth take at bedtime As Needed insomnia ESZOPICLONE 67242044251 Active Jorden Hahn MD Active LYRICA 50 MG ORAL CAPSULE PREGABALIN 34265365197 Active Jorden Hahn MD Active AMBIEN CR 6.25 MG ORAL TABLET EXTENDED RELEASE Take 1 tab By Mouth take at bedtime As Needed for insomnia ZOLPIDEM TARTRATE 25289165763 No Longer Active Jorden Hahn MD Active [...] Encounters Date Encounter Provider Code Facility 11:58:45 BUSINESS ADMINISTRATOR Est Patient Exp Problem - 64767 Jorden Hahn MD CPT -00151 [facility] Procedures Code Procedure Name Date Entry Date Standard Description CPT-84431 Psychotherapy 45 (38-52*) min - 40276 (with patient and/or family member) 13:45:10 BUSINESS ADMINISTRATOR CPT-41225 Psychotherapy 45 (38-52*) min - 46015 (with patient and/or family member) 16:00:40 BUSINESS ADMINISTRATOR CPT-15729 Psychotherapy 45 (38-52*) min - 88579 (with patient and/or family member) 12:57:46 BUSINESS ADMINISTRATOR CPT-20308 Diagnostic evaluation with medical - 81350 14:12:19 BUSINESS ADMINISTRATOR CPT-00689 Psychotherapy 60 (53+*) min - 56052 (with patient and/or family member) 11:43:03 BUSINESS ADMINISTRATOR CPT-87089 Psychotherapy 60 (53+*) min - 87196 (with patient and/or family member) 12:03:20 CDT CPT-15419 Psychotherapy 45 (38-52*) min - 28290 (with patient and/or family member) 13:59:49 CDT CPT-50031 Psychotherapy 45 (38-52*) min - 01501 (with patient and/or family member) 12:00:08 CDT CPT-15994 Diagnostic evaluation (no medical) - 21201 12:47:48 CDT
[2017-06-20] MEDS ORDERED: HYDROMORPHONE 1MG/1ML INJ IM STA (16:24)
[2017-06-20] MEDS ORDERED: KETOROLAC TROMETHAMINE 60 MG/2 ML VIAL IM ONE (16:30)
== END 2017-06-20 19:30 | disposition home or self-care (01) ==
LOC: ER 12:59
DX: R30.0 Dysuria (principal); R31.9 Hematuria, unspecified; N23 Unspecified renal colic
CPT/HCPCS: 99282; J1885

== ENCOUNTER → 2017-06-20 | Day surgery (SDC) | payer BC ==
[2017-06-15 11:39] LABS: BASOPHILS # (AUTO) 0.1 (0.0-0.1); BASOPHILS % 0.7 % (0.0-1.0); EOSINOPHILS # (AUTO) 0.2 (0.0-0.4); EOSINOPHILS % 3.1 % (0.0-6.0); HEMATOCRIT 38.4 % (34.2-44.1); HEMOGLOBIN 11.8 g/dL (12.0-16.0); LYMPHOCYTES # (AUTO) 1.8 (1.0-3.2); LYMPHOCYTES % 25.7 % (18.0-39.1); MEAN CORPUSCULAR HEMOGLOBIN 26.5 pg (28-32); MEAN CORPUSCULAR HGB CONC 30.7 g/dL (31-35); MEAN CORPUSCULAR VOLUME 86.3 fL (81-99); MONOCYTES # (AUTO) 0.8 (0.2-0.8); MONOCYTES % 10.7 % (4.4-11.3); NEUTROPHILS # (AUTO) 4.3 (2.1-6.9); NEUTROPHILS % 59.4 % (38.7-80.0); PLATELET COUNT 272 x10e3/uL (140-360); RED BLOOD COUNT 4.45 x10e6/uL (3.6-5.1); RED CELL DISTRIBUTION WIDTH 14.9 % (11.7-14.4)
--- NOTE | 2017-06-15 11:57 | Diagnostic Imaging Report ---
PROCEDURE: Frontal and lateral views of the chest. COMPARISON: 06/06/17 INDICATIONS: PREOPERATIVE CHEST XRAY FOR KIDNEY STONE SURGERY FINDINGS: Lines/tubes: None. Lungs: The lungs are well inflated and clear. There is no evidence of pneumonia or pulmonary edema. Pleura: There is no pleural effusion or pneumothorax. Heart and mediastinum: The cardiac silhouette is enlarged. Median sternotomy wires and mediastinal surgical clips. Bones: No acute bony abnormality. Right upper abdomen surgical clips, likely related to cholecystectomy. IMPRESSION: 1. No acute cardiopulmonary disease. 2. Enlarged cardiac silhouette. Dictated by: Ladarius Alfaro M.D. on 06/15/2017 at 11:59 Electronically approved by: Ladarius Alfaro M.D. on 06/15/2017 at 11:59
[~2017-06-20] MED LIST changes: +ASPIRIN325 MG PO; +BUSPIRONE HCL5 MG PO; +CEFTRIAXONE SOD 1 GM VIAL ONE; +CLONAZEPAM0.5 MG PO; +CRESTOR10 MG PO; +CYMBALTA20 MG PO; +DEXAMETHASONE SOD PHOS INJ 4 MG/ML VIAL ONE; +EPHEDRINE SULFATE INJ 50 MG/10 ML SYR ONE; +FENTANYL CITRATE/PF 100MCG/2 ML INJ ONE; -GADOBENATE DIMEGLUMINE 1 ML IV ONE; +IOPAMIDOL 610MG/1ML 300 MG/ML VIAL IV ONE; +LEVOTHYROXINE50 MCG PO; +LIDOCAINE HCL 2% LOCAL INJ 5 ML SDV VIAL INJ ONE; +LUNESTA3 MG PO; +LYRICA50 MG PO; +METOPROLOL SUCC25 MG PO; +MIDAZOLAM HCL 2 MG/2 ML VIAL ONE; +NORCO 10-325 T1 EACH PO; +ONDANSETRON HCL INJ 2 MG/ML VIAL ONE; +PROPOFOL IV EMULSION 10 MG/ML 20 ML VIAL ONE; +SEVOFLURANE INHAL SOLN 250 ML PEN BTL ONE; +ULTRAM50 MG PO; +ceftin PO; +ditropan PO; +robaxin PO
--- OUTSIDE RECORDS SUMMARY | 2017-06-20 05:12 | XMS REPORT | Continuity of Care Document ---
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 Yes 06/06/17 1:55am If yes, is advance directive on file with [facility]? No 06/06/17 1:55am If not on file with [facility] will patient provide a copy? No 06/06/17 1:55am Do you have a Directive to Physician? No 06/05/17 8:09pm Do you have a Medical Power of Courier Delivery Driver? No 06/05/17 8:09pm Do you have an out of hospital Do Not Resuscitate Order? No 06/05/17 8:09pm Do you have any special needs we should be aware of? No 06/05/17 8:09pm Do you have a support person here with you today? Yes 06/05/17 8:09pm Did patient receive Notice of Privacy Practices? Yes 06/05/17 8:09pm Did patient receive patient rights and responsibilities? Yes 06/05/17 8:09pm Problems Medical Problem Onset Date Status Hydronephrosis Unknown Ureterolithiasis Unknown Medications Current Home Medications Medication Dose Units Route Directions Days Qty Instructions Start Date Buspirone Hcl 5 Mg Tablet 10 Mg Oral Every 12 Hours 60 Tab Ceftin 500 Mg Oral Twice A Day Clonazepam 0.5 Mg Tablet 0.5 Mg Oral Every 8 Hours as needed for Anxiety Ditropan 5 Mg Oral Three Times A Day as needed for Bladder Spasms 90 Duloxetine Hcl (Cymbalta) 20 Mg Capcr 60 Mg Oral Daily 30 Cap Eszopiclone (Lunesta) 3 Mg Tablet 3 Mg Oral Bedtime Hydrocodone Bit/Acetaminophen (Sanford 10-325 Tablet) 1 Each Tablet 1 Tab Oral Every 4 Hours for Pain Levothyroxine Sodium 50 Mcg Tablet 50 Mcg Oral Today At 6:00AM 30 Tab Metoprolol Succinate 25 Mg Tab.er.24h 25 Mg Oral Every 12 Hours Pregabalin (Lyrica) 50 Mg Cap 50 Mg Oral Every 12 Hours 30 Tab Robaxin 500 Mg Oral Three Times A Day Rosuvastatin Calcium (Crestor) 10 Mg Tab 10 Mg Oral Daily THERAPEUTICALLY SUBSTITUTED WITH SIMVASTATIN 40MG Tramadol Hcl (Ultram) 50 Mg Tablet 100 Mg Oral Every 6 Hours as needed for Pain Social History Social History Problem Response Recorded Date/Time Onset Date Status Hx Psychiatric Problems Yes 06/06/2017 1:55am Not Applicable Not Applicable Hx Eating Disorder No 06/06/2017 1:55am Not Applicable Not Applicable Hx Substance Use Disorder No 06/06/2017 1:55am Not Applicable Not Applicable Hx Depression Yes 06/06/2017 1:55am Not Applicable Not Applicable Hx Alcohol Use No 06/06/2017 1:55am Not Applicable Not Applicable Hx Substance Use Treatment No 06/06/2017 1:55am Not Applicable Not Applicable Hx Physical Abuse No 06/06/2017 1:55am Not Applicable Not Applicable Hospital Discharge Instructions No hospital discharge instruction information available. Plan of Care Discharge Date 06/08/17 6:40pm Disposition HOME, SELF-CARE Instructions/Education Provided Flank Pain Prescriptions See Medication Section Referrals CAROLINE FALCON MD (Urology) Order Date: 1-2 Weeks Entered Date: 06/08/2017 4:16pm Address: [facility] [place] [address] Additional Instructions/Education Activity as tolerated Follow up with 1-2 weeks Follow up with PCP 1 week Take medications as prescibed. Do not take ultram and Sanford at the same time. Alternate Do not drive after taking ultram or Sanford Functional Status Query Response Date Recorded Assistive Devices None June 06, 2017 2:01am Ambulation Ability Independent June 06, 2017 2:01am Toileting Ability Independent June 08, 2017 6:10pm Allergies, Adverse Reactions, Alerts Allergen Type Severity Reaction Status Last Updated Codeine Allergy Mild ITCHING Active 06/06/17 Immunizations No immunization information available. Vital Signs Acute Vital Signs Vital Response Date/Time Temperature (Fahrenheit) 97.0 degrees F (97.6 - 99.5) 06/08/2017 4:48pm Pulse Pulse Rate (adult) 63 bpm (60 - 90) 06/08/2017 4:48pm Respiratory Rate 18 bpm (12 - 24) 06/08/2017 4:48pm Blood Pressure 129/60 mm Hg 06/08/2017 4:48pm Height 5 ft 3 in 06/05/2017 8:15pm Weight 235.13 lb 06/06/2017 1:55am Body Mass Index 41.7 kg/m^2 06/06/2017 1:55am Results Laboratory Results Test Name Result Units Flags Reference Collection Date/Time Result Date/ Time Comments White Blood Count 8.35 x10e3/uL 4.8-10.8 06/06/2017 5:46am 06/06/2017 5 :53am Red Blood Count 4.00 x10e6/uL 3.6-5.1 06/06/2017 5:46am 06/06/2017 5: 53am Hemoglobin 10.8 g/dL L 12.0-16.0 06/06/2017 5:46am 06/06/2017 5:53am Hematocrit 34.4 % 34.2-44.1 06/06/2017 5:46am 06/06/2017 5:53am Mean Corpuscular Volume 86.0 fL 81-99 06/06/2017 5:46am 06/06/2017 5: 53am Mean Corpuscular Hemoglobin 27.0 pg L 28-32 06/06/2017 5:46am 2017 5:53am Mean Corpuscular Hemoglobin Concent 31.4 g/dL 31-35 06/06/2017 5:4606/06/2017 5:53am Red Cell Distribution Width 14.8 % H 11.7-14.4 06/06/2017 5:462017 5:53am Platelet Count 234 x10e3/uL 140-360 06/06/2017 5:46am 06/06/2017 5: 53am Neutrophils (%) (Auto) 57.6 % 38.7-80.0 06/06/2017 5:am 06/06/2017 5: 53am Lymphocytes (%) (Auto) 24.1 % 18.0-39.1 06/06/2017 5:06/06/2017 5: 53am Monocytes (%) (Auto) 13.1 % H 4.4-11.3 06/06/2017 5:06/06/2017 5: 53am Eosinophils (%) (Auto) 4.2 % 0.0-6.0 06/06/2017 5:06/06/2017 5: 53am Basophils (%) (Auto) 0.6 % 0.0-1.0 06/06/2017 5:06/06/2017 5:53am IM GRANULOCYTES % 0.4 % 0.0-1.0 06/06/2017 5:06/06/2017 5:53am Neutrophils # (Auto) 4.8 2.1-6.9 06/06/2017 5:am 06/06/2017 5:53am Lymphocytes # (Auto) 2.0 1.0-3.2 06/06/2017 5:06/06/2017 5:53am Monocytes # (Auto) 1.1 H 0.2-0.8 06/06/2017 5:06/06/2017 5:53am Eosinophils # (Auto) 0.4 0.0-0.4 06/06/2017 5:46am 06/06/2017 5:53am Basophils # (Auto) 0.1 0.0-0.1 06/06/2017 5:46am 06/06/2017 5:53am Absolute Immature Granulocyte (auto 0.03 x10e3/uL 0-0.1 06/06/2017 5: 46am 06/06/2017 5:53am Urine Color YELLOW YELLOW 06/05/2017 8:11pm 06/05/2017 10:01pm Urine Clarity SL CLOUDY CLEAR 06/05/2017 8:1106/05/2017 10:01pm Urine Specific [place] 1.030 H 1.010-1.025 06/05/2017 8:11pm 2017 10:01pm Urine pH 5 5 - 7 06/05/2017 8:1106/05/2017 10:01pm Urine Leukocyte Esterase NEGATIVE NEGATIVE 06/05/2017 8:112017 10:01pm Urine Nitrite NEGATIVE NEGATIVE 06/05/2017 8:1106/05/2017 10:01pm Urine Protein 1+ H NEGATIVE 06/05/2017 8:1106/05/2017 10:01pm Urine Glucose (UA) NEGATIVE NEGATIVE 06/05/2017 8:11pm 06/05/2017 10: 01pm Urine Ketones NEGATIVE NEGATIVE 06/05/2017 8:1106/05/2017 10:01pm Urine Urobilinogen 0.2 mg/dL 0.2 - 1 06/05/2017 8:11pm 06/05/2017 10: 01pm Urine Bilirubin 1+ H NEGATIVE 06/05/2017 8:1106/05/2017 10:01pm Urine Blood 4+ H NEGATIVE 06/05/2017 8:1106/05/2017 10:01pm Urine WBC 0-5 /HPF 0-5 06/05/2017 8:11pm 06/05/2017 10:19pm Urine RBC >50 /HPF H 0-5 06/05/2017 8:1106/05/2017 10:19pm Urine Bacteria RARE /HPF NONE 06/05/2017 8:11pm 06/05/2017 10:19pm Urine Epithelial Cells RARE /LPF NONE 06/05/2017 8:1106/05/2017 11: 16pm Urine Calcium Oxalate Crystals FEW FEW 06/05/2017 8:11pm 06/05/2017 10:19pm Urine Test NEGATIVE NEGATIVE 06/05/2017 8:40pm 06/05/2017 9 :30pm Sodium Level 140 mmol/L 136-145 06/06/2017 5:46am 06/06/2017 6:28am Potassium Level 4.2 mmol/L 3.5-5.1 06/06/2017 5:46am 06/06/2017 6:28am Chloride Level 110 mmol/L H 98-107 06/06/2017 5:46am 06/06/2017 6:28am Carbon Dioxide Level 22 mmol/L 22-29 06/06/2017 5:46am 06/06/2017 6: 28am Anion Gap 12.2 mmol/L 8-16 06/06/2017 5:46am 06/06/2017 6:28am Blood Urea Nitrogen 22 mg/dL 7-06/06/2017 5:46am 06/06/2017 6:28am Creatinine 1.01 mg/dL 0.57-1.11 06/06/2017 5:46am 06/06/2017 6:28am BUN/Creatinine Ratio 22 6-06/06/2017 5:46am 06/06/2017 6:28am Estimat Glomerular Filtration Rate 58 ML/MIN L 60- 06/06/2017 5:46am 6:28am Ranges were taken from the National Kidney Disease Education Program and the National Kidney Foundation literature. Reference ranges: 60 or greater: Normal 16-59 (for 3 consecutive months): Chronic kidney disease 15 or less: Kidney failure Glucose Level 91 mg/dL 74-118 06/06/2017 5:46am 06/06/2017 6:28am Calcium Level 8.6 mg/dL 8.4-10.2 06/06/2017 5:4606/06/2017 6:28am Total Bilirubin 0.5 mg/dL 0.2-1.2 06/06/2017 5:46am 06/06/2017 6:28am Aspartate Amino Transf (AST/SGOT) 22 IU/L 5-34 06/06/2017 5:46am 2017 6:28am Alanine Aminotransferase (ALT/SGPT) 14 IU/L 0-55 06/06/2017 5:46am 6:28am Total Protein 6.1 g/dL L 6.5-8.1 06/06/2017 5:46am 06/06/2017 6:28am Albumin 3.3 g/dL L 3.5-5.0 06/06/2017 5:46am 06/06/2017 6:28am Globulin 2.8 g/dL 2.3-3.5 06/06/2017 5:46am 06/06/2017 6:28am Albumin/Globulin Ratio 1.2 0.8-2.0 06/06/2017 5:46am 06/06/2017 6: 28am Alkaline Phosphatase 62 IU/L 40-150 06/06/2017 5:46am 06/06/2017 6: 28am Amylase Level 35 U/L 25-125 06/05/2017 9:20pm 06/05/2017 10:33pm Lipase 22 U/L 8-78 06/05/2017 9:20pm 06/05/2017 10:33pm Procedures Procedure Status Date Provider(s) Cystoscopy with retrograde pyelography Completed 06/06/17 CAROLINE FALCON MD Limited non-vascular ultrasound of extremity Active 03/07/17 TAYLER BELTRAN DO Magnetic resonance imaging of pelvis without then with contrast Active TAYLER BELTRAN DO CT of abdomen and pelvis without contrast Active 06/05/17 JOSEFA REED MD Encounters Encounter Location Arrival/Admit Date Discharge/Depart Date Attending Provider Discharged Inpatient [facility] 06/05/17 11:17pm 6:40pm XU GREER MD Registered Clinic [facility] 04/15/17 7:31am TAYLER BELTRAN DO Registered Clinic [facility] 03/07/17 2:43pm TAYLER BELTRAN DO
--- OUTSIDE RECORDS SUMMARY | 2017-06-20 05:12 | XMS REPORT ---
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 Anxiety state, unspecified Medication List Medication Instructions Start Date Stop Date Generic Name NDC Status Provider Patient Instruction BUSPIRONE HCL 10 MG ORAL TABLET Take 1 tab By Mouth Twice a Day BUSPIRONE HCL 61214936434 Active Jorden Hahn MD Active CYMBALTA 60 MG ORAL CAPSULE DELAYED RELEASE PARTICLES Take 1 tab By Mouth Every Morning DULOXETINE HCL 35253473803 Active Jorden Hahn MD Active KLONOPIN 0.5 MG ORAL TABLET Take 1 tab By Mouth every 8 hours As Needed for anxiety CLONAZEPAM 70998214395 Active Jorden Hahn MD Active LUNESTA 2 MG ORAL TABLET Take 1 tab By Mouth take at bedtime As Needed insomnia ESZOPICLONE 79610369910 Active Jorden Hahn MD Active LYRICA 50 MG ORAL CAPSULE PREGABALIN 57983700556 Active Jorden Hahn MD Active AMBIEN CR 6.25 MG ORAL TABLET EXTENDED RELEASE Take 1 tab By Mouth take at bedtime As Needed for insomnia ZOLPIDEM TARTRATE 60059034231 No Longer Active Jodren Hahn MD Active Vital Signs Date Name [...] Encounters Date Encounter Provider Code Facility 11:58:45 IGNITION EXPERT Est Patient Exp Problem - 73000 Jorden Hahn MD CPT -34584 [facility] Procedures Code Procedure Name Date Entry Date Standard Description CPT-26047 Psychotherapy 45 (38-52*) min - 35976 (with patient and/or family member) 13:45:10 IGNITION EXPERT CPT-78605 Psychotherapy 45 (38-52*) min - 30953 (with patient and/or family member) 16:00:40 IGNITION EXPERT CPT-57951 Psychotherapy 45 (38-52*) min - 01512 (with patient and/or family member) 12:57:46 IGNITION EXPERT CPT-36256 Diagnostic evaluation with medical - 10325 14:12:19 IGNITION EXPERT CPT-98949 Psychotherapy 60 (53+*) min - 01479 (with patient and/or family member) 11:43:03 IGNITION EXPERT CPT-59917 Psychotherapy 60 (53+*) min - 60723 (with patient and/or family member) 12:03:20 CDT CPT-99621 Psychotherapy 45 (38-52*) min - 16573 (with patient and/or family member) 13:59:49 CDT CPT-28471 Psychotherapy 45 (38-52*) min - 42515 (with patient and/or family member) 12:00:08 CDT CPT-44237 Diagnostic evaluation (no medical) - 02784 12:47:48 CDT
--- OUTSIDE RECORDS SUMMARY | 2017-06-20 05:12 | XMS REPORT | Clinical Summary ---
Author Author [facility] Organization [facility] Address Unknown Phone Unavailable Care Team Providers Care Special Education Educational Assistant Name Role Phone Ledy George MD PCP Allergies Active Allergy Reactions Severity Noted Date Comments Codeine Itching Current Medications Prescription Sig. Disp. Refills Start End Date Status Date nitroglycerin (NITROSTAT) TK UTD PRN SUBLINGUAL 7 08/02/19 Active 0.4 MG SL tablet 17 levothyroxine (SYNTHROID, TK 1 T PO QD 5 07/30/19 Active LEVOXYL) 50 mcg tablet 17 temazepam (RESTORIL) 15 TK 1 C PO QD HS PRN 2 08/02/19 Active mg capsule 17 metoprolol tartrate Take 25 mg by mouth 2 Active (LOPRESSOR) 25 mg tablet (two) times a day. aspirin 325 MG tablet Take 325 mg by mouth Active daily. FUROSEMIDE ORAL Take 10 mg by mouth. Active TROKENDI XR 50 mg TK ONE C PO QD 3 07/29/19 06/15/19 Discontin capsule,extended release 17 18 ued 24hr Active Problems Problem Noted Date Displaced fracture of fifth metatarsal bone of left foot with routine 2017 healing Ureteric stone 06/14/2017 Coronary arteriosclerosis 06/14/2017 Essential hypertension 06/14/2017 Closed fracture of fifth metatarsal bone 03/16/2017 Encounters Date Type Specialty Care Team Description 06/14/2017 Office Visit Ortho Sports Medicine Edd Ramirez Closed displaced fracture MD Yenny of fifth metatarsal bone of left foot with routine healing, subsequent encounter (Primary Dx) 06/13/2017 Hospital Radiology Edd Ramirez Left foot pain Encounter MD Yenny 06/13/2017 Ancillary Radiology Edd Ramirez Left foot pain Orders MD Yenny 06/09/2017 Telephone Ortho Sports Medicine Opal Johnson MA 06/02/2017 Ancillary Edd Ramirez Left foot pain Orders MD Yenny 06/02/2017 Orders Only Ortho Sports Medicine Lenz Opal [place], Left foot pain (Primary MA Dx) 05/20/2017 Hospital Radiology Edd Ramirez Nondisp fx of 5th Encounter MD re Ramon, unsp ft, init for opn fx 05/20/2017 Ancillary Radiology Edd Ramirez Nondisp fx of 5th Orders MD re Ramon, unsp ft, init for opn fx 05/19/2017 Orders Only Ortho Sports Medicine Tip Christie, KENNA 05/19/2017 Orders Only Ortho Sports Medicine Tip Christie, MA Nondisp fx of 5th metatarsal bone, unsp ft, init for opn fx (Primary Dx) 08/17/2016 Office Visit Neurology Severo Aragon MD Difficulty concentrating (Primary Dx); Numbness and tingling in both hands; Syncope, unspecified syncope type; Stenosis of intracranial vessel; Essential hypertension; Other hyperlipidemia; Coronary artery disease involving other coronary artery bypass graft 08/17/2016 Telephone Neurology Severo Aragon MD after 06/19/2016 Family History Medical History Relation Name Comments [...] Vital Sign Reading Time Taken Blood Pressure 132/67 06/14/2017 10:46 AM CDT Pulse 59 06/14/2017 10:46 AM CDT Temperature - - Respiratory Rate - - Oxygen Saturation - - Inhaled Oxygen - - Concentration Weight 109 kg (239 lb 6.4 oz) 06/14/2017 10:46 AM CDT Height 160 cm (5' 3") 06/14/2017 10:46 AM CDT Body Mass Index 42.41 06/14/2017 10:46 AM CDT Plan of Treatment Date Type Specialty Care Team Description 07/13/2017 Office Visit [place] [address] [facility] [address] [place] [address] Health Maintenance Due Date Last Done Comments PAP SMEAR 01/05/1989 INFLUENZA VACCINE 09/07/2017 Results * XR Foot 3+ Vw Left (06/13/2017 3:37 PM) Only the most recent of 2 results within the time period is included. Specimen Performing Laboratory [facility] [address] [place] [address] Narrative EXAMINATION:XR FOOT 3VW LEFT CLINICAL HISTORY:M79.672 Pain in left foot, BONE PAINFOOT COMPARISON:Left foot series 05/20/2017 IMPRESSION: AP, lateral, and oblique views reveal the previously described fracture at the fifth metatarsal without interval change in apposition or alignment of the fracture fragments. The remainder of the examination is unchanged. [facility]-[id number] Procedure Note Interface, Radiology Results Incoming - 06/13/2017 4:08 PM CDT EXAMINATION: XR FOOT 3 VW LEFT CLINICAL HISTORY: M79.672 Pain in left foot, BONE PAIN FOOT COMPARISON: Left foot series 05/20/2017 IMPRESSION: AP, lateral, and oblique views reveal the previously described fracture at the fifth metatarsal without interval change in apposition or alignment of the fracture fragments. The remainder of the examination is unchanged. [facility]-[id number] after 06/19/2016 Insurance Payer Benefit Subscriber ID Type Phone Address Plan / Group BCBS BCBS xxxxxxxxxxxx PPO CHOICE [place] [address]
--- NOTE | 2017-06-20 08:28 | Operative Report ---
DATE OF PROCEDURE: June 20, 2017 PREOPERATIVE DIAGNOSES 1. Right renal calculus. 2. Right indwelling stent. POSTOPERATIVE DIAGNOSES 1. Right renal calculus. 2. Right indwelling stent. PROCEDURES 1. Cystourethroscopy with complicated removal of right indwelling stent (entirely separate procedure complicated secondary to encrustation). 2. Right-sided ureteroscopy with laser lithotripsy (entirely separate procedure for obstructed and impacted right ureteral calculus). 3. Right-sided ureteroscopy with stone extraction (entirely separate procedure for the explicit purpose of sending stone for analysis and not required for laser lithotripsy). 4. Supervision of fluoroscopy during ureteroscopy. 5. Supervision of fluoroscopy during stent removal. ANESTHESIA: General. ESTIMATED BLOOD LOSS: Minimal. COMPLICATIONS: None. INDICATIONS: Ms. Dalton is a very pleasant 47-year-old female with a history of a stent and a stone. She and I had a long discussion about alternatives, risks and benefits including doing nothing, ureteroscopy, shock wave lithotripsy, percutaneous surgery, open surgery. She voiced understanding of the options, alternatives, risks, and benefits, and elected to proceed. PROCEDURE IN DETAIL: After informed consent was obtained, the patient was taken to the operative suite. She was placed supine on the table. She underwent general anesthesia and placed in the dorsal lithotomy position, and sterilely prepped and draped in a standard fashion for cystoscopy. A 22.5-[place] Islander cystoscope was inserted per urethra, and noted to pass normally. No tumors and no stones. Both ureteral orifices were within normal anatomic location and position and seen to efflux clear urine. Attention was turned to the right ureteral orifice where an encrusted stent was seen and extruded. Of note, the cystoscope tower was unable to take photographs despite staff manipulation. At this time, a guidewire was inserted alongside the stent. The stent was grasped and it was removed intact. The ureteroscope was driven to the level of the offending stone. It was impacted densely in the distal midureter. Utilizing 365 micron fiber, the stone was broken into multiple fragments, the largest of which were basket extracted and passed off the table as specimens with explicit purposes of sending the stone for analysis and not required for laser lithotripsy. At this time, no further stones were noted. The guidewire was removed. The bladder was drained. The patient was awakened from anesthesia and transported to the recovery room in excellent condition. SUPERVISION OF FLUOROSCOPY: I was present throughout the entire procedure and I supervised the use of fluoroscopy for ureteroscopy/dilation/stent removal portions. There was no radiologist present. Job#: [id number] OMAR
== END | disposition home or self-care (01) ==
LOC: OR 05:10
PROVIDERS: ATTEND Urology
DX: N20.0 Calculus of kidney (principal); Z46.6 Encounter for fitting and adjustment of urinary device; N39.0 Urinary tract infection, site not specified; I69.951 Hemiplegia and hemiparesis following unspecified cerebrovascular disease affecting right dominant side; I69.911 Memory deficit following unspecified cerebrovascular disease; I25.810 Atherosclerosis of coronary artery bypass graft(s) without angina pectoris; I25.2 Old myocardial infarction; I10 Essential (primary) hypertension; K21.9 Gastro-esophageal reflux disease without esophagitis; F41.9 Anxiety disorder, unspecified; Z01.810 Encounter for preprocedural cardiovascular examination; Z01.812 Encounter for preprocedural laboratory examination; Z01.818 Encounter for other preprocedural examination
CPT/HCPCS: 36415; 52353; 71046; 74420; 85025; 88300; 93005; J0696; J1100; J2001; J2250; J2405; Q9967

== ENCOUNTER → 2018-01-02 | Outpatient (CLI) | payer BC ==
--- NOTE | 2018-01-03 08:19 | Diagnostic Imaging Report ---
TECHNIQUE: Magnetic resonance imaging of the LEFT ANKLE was performed WITHOUT injected contrast. COMPARISON: None available. HISTORY: Ankle pain, injury FINDINGS: LIGAMENTS: Medial Complex: Deltoid ligament intact. Lateral Complex: Tibiofibular ligaments intact. Partial tearing of the anterior talofibular ligament and sprain of the calcaneofibular ligament. TENDONS: Medial: Posterior tibial and flexor tendons intact. Lateral: Mild reactive peroneal tenosynovitis. Anterior: Anterior tibial and extensor tendons intact. Achilles: Achilles tendon intact. BONES: Contusion to the medial malleolus and medial talus. Edema in the distal fibula without visualized fracture. Correlate with radiograph for punctate avulsion. Edema in the cuboid. No acute fracture or osteonecrosis. JOINTS: Cartilage: No focal defect is identified involving the tibiotalar joint. Other: Small ankle effusion. SOFT TISSUES: Thickening of the plantar fascia adjacent edema. IMPRESSION: Ankle inversion injury: * Partial tearing of the anterior talofibular ligament with edema in the distal fibula (correlate with radiograph for punctate avulsion) * Osseous contusion of the medial malleolus and medial talus. * Mild reactive peroneal tenosynovitis. Signed by: Dr. Raheem Watts M.D. on 01/03/2018 8:16 AM
== END ==
LOC: MRI 15:57
PROVIDERS: ATTEND Family Medicine
DX: M25.572 Pain in left ankle and joints of left foot (principal)

== ENCOUNTER → 2018-02-01 | Outpatient (CLI) | payer BC ==
--- NOTE | 2018-02-01 10:27 | Diagnostic Imaging Report ---
EXAM: DXA BONE DENSITY INDICATIONS: SCREENING FOR OSTEOPORSIS COMPARISON: None. FINDINGS: Proximal left femur bone mineral density (BMD) (g/cm2):0.838 Femur T-score (standard deviation relative to young adult mean BMD): -0.9 Femur Z-score (standard deviation relative to age-matched control group):-0.4 Lumbar bone mineral density (BMD) (g/cm2):0.905 Lumbar T-score (standard deviation relative to young adult mean BMD): -1.3 Lumbar Z-score (standard deviation relative to age-matched control group):-0.6 Change since prior exam (%): Femur:Not applicable. Spine:Not applicable. Change since oldest prior exam (%): Femur:Not applicable. Spine:Not applicable. CONCLUSION: 1. Bone mineral density in the left femur is classified as normal. Fracture risk is not increased. 2. Bone mineral density in the spine is classified as osteopenia. Fracture risk is increased 3. The 10 year fracture risk for a major osteoporotic fracture is 6.0%. 4. The 10 year fracture risk for a hip fracture is 0.3%. World Health Organization Classification: *The Z-score is provided for informational purposes. The T-score is preferable for clinical decisions. When comparing exams, a change of >4% is considered statistically significant. SUGGESTED RECOMMENDATIONS: Normal & Osteopenia:Consideration should be given to use of calcium supplementation, daily multiple vitamins and adequate exercise, as preventive measures against osteoporosis, if clinically indicated. Osteoporosis & Severe Osteoporosis:In addition to the above, consideration should be given to medical therapy against osteoporosis, if clinically indicated. Hansel Ugarte D.O. Dictated by: Hansel Ugarte D.O. on 02/01/2018 at 10:38 Electronically approved by: Hansel Ugarte D.O. on 02/01/2018 at 10:38
--- NOTE | 2018-02-02 12:44 | Diagnostic Imaging Report ---
Right knee MRI without contrast. History: Knee pain. Decreased range of motion. Pain not responding to conservative management. Comparison: None. Technique: Multiplanar multi-sequence MRI of the knee without contrast. Findings: Medial compartment: There is mid substance degeneration of the medial meniscus at the posterior horn with mild fraying. No tear is seen. The medial compartmental articular cartilage surfaces are slightly thin. The medial collateral complex is intact. Lateral compartment: The lateral meniscus is intact. The lateral compartmental articular cartilage is slightly thin with regions of fraying and fissuring. The lateral collateral ligament complex is intact. Intercondylar notch: The ACL and PCL are intact. Patellofemoral compartment: There is articular cartilage fraying in the fissure in the patellofemoral compartment with mild underlying bone marrow edema best seen on axial series 3 image 14 at the lateral patellar facet. Extensor mechanism: The quadriceps and patellar tendons are normal. Other findings: There is a joint effusion and synovitis. There is no acute fracture, subluxation or avascular necrosis. 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 No meniscal tear, collateral ligament tear or cruciate ligament tear. Signed by: Dr. Garfield Reinoso M.D. on 02/02/2018 12:40 PM
== END ==
LOC: MRI 08:24
PROVIDERS: ATTEND Family Medicine
DX: Z13.820 Encounter for screening for osteoporosis (principal); M25.561 Pain in right knee
CPT/HCPCS: 77080

== ENCOUNTER → 2018-03-01 | Outpatient (CLI) | payer BC ==
--- NOTE | 2018-03-01 11:09 | Diagnostic Imaging Report ---
TECHNIQUE: Magnetic resonance imaging of the LEFT ANKLE was performed WITHOUT injected contrast. COMPARISON: MRI January 02, 2018 HISTORY: Ankle pain, sprain FINDINGS: LIGAMENTS: Medial Complex: Intact Lateral Complex: Tibiofibular ligaments intact. Scarring of the anterior talofibular ligament. Calcaneofibular ligament intact. TENDONS: Medial: Posterior tibial tendon and flexor tendons intact. Lateral: Peroneal tendons intact. Anterior: Anterior tibial and extensor tendons intact. Achilles: Achilles tendon intact. BONES: No focal or infiltrative bone marrow replacing abnormality. No acute fracture or osteonecrosis. JOINTS: Cartilage: Multifocal degenerative arthrosis of the midfoot, talonavicular joint, and subtalar joint. Other: Fluid within the joints is within physiologic limits. SOFT TISSUES: Dorsal and plantar calcaneal enthesophytes. IMPRESSION: Prior ankle inversion injury with scarring of the ATFL. 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 Signed by: Dr. Raheem Watts M.D. on 03/01/2018 11:06 AM
== END ==
LOC: MRI 09:48
PROVIDERS: ATTEND Podiatrist Foot & Ankle Surgery
DX: S93.412A Sprain of calcaneofibular ligament of left ankle, initial encounter (principal); M25.572 Pain in left ankle and joints of left foot

== ENCOUNTER 2020-05-01 12:04 | Emergency (ER) | payer BC ==
[~2020-05-01] VITALS: Ht 160 cm; Wt 106.6 kg
[2020-05-01] MEDS ORDERED: ONDANSETRON HCL INJ 2MG/ML 2ML 2 MG/ML VIAL IV STA (12:18)
[2020-05-01] MEDS ORDERED: SODIUM CHLORIDE 0.9% 1000ML 1,000 ML IV STA (12:18)
[2020-05-01 12:40] LABS: BASOPHILS % 0.4 % (0.0-1.0); EOSINOPHILS # (AUTO) 0.4 (0.0-0.4); EOSINOPHILS % 3.6 % (0.0-6.0); HEMATOCRIT 38.6 % (34.2-44.1); LYMPHOCYTES # (AUTO) 1.9 (1.0-3.2); LYMPHOCYTES % 16.8 % (18.0-39.1); MEAN CORPUSCULAR HEMOGLOBIN 29.3 pg (28-32); MEAN CORPUSCULAR HGB CONC 31.1 g/dL (31-35); MEAN CORPUSCULAR VOLUME 94.1 fL (81-99); MONOCYTES # (AUTO) 1.3 (0.2-0.8); MONOCYTES % 11.5 % (4.4-11.3); NEUTROPHILS # (AUTO) 7.4 (2.1-6.9); NEUTROPHILS % 67.2 % (38.7-80.0); PLATELET COUNT 291 x10e3/uL (140-360); RED CELL DISTRIBUTION WIDTH 14.4 % (11.7-14.4)
[2020-05-01 12:45] LABS: BACTERIA,URINE RARE /HPF; CLARITY,URINE CLEAR (CLEAR); COLOR,URINE YELLOW (YELLOW); EPITHELIAL CELLS,URINE RARE /LPF; KETONES,URINE NEGATIVE (NEGATIVE); LEUKOCYTE ESTERASE ,URINE TRACE (NEGATIVE); NITRITE,URINE NEGATIVE (NEGATIVE); PROTEIN,URINE DIPSTICK NEGATIVE (NEGATIVE); URINE UROBILINOGEN 0.2 mg/dL (0.2 - 1)
[2020-05-01 13:01] LABS: ALBUMIN 3.6 g/dL (3.5-5.0); ANION GAP 13.9 mmol/L (8-16); CALCIUM 8.1 mg/dL (8.4-10.2); CREATININE, SERUM 1.04 mg/dL (0.57-1.11); POTASSIUM 3.9 mmol/L (3.5-5.1)
[2020-05-01] MEDS ORDERED: SODIUM CHLORIDE 0.9% 50ML 50 ML ONE (13:35)
[2020-05-01] MEDS ORDERED: IOPAMIDOL 370 MG/ML 200 ML INFUS..BTL INJ ONE (13:35)
[2020-05-01] MEDS ORDERED: LOMOTIL TABLET1 EACH PO (14:46)
== END 2020-05-01 15:22 | disposition home or self-care (01) ==
LOC: ER 12:07
DX: R19.7 Diarrhea, unspecified (principal); R10.9 Unspecified abdominal pain; R42 Dizziness and giddiness; R94.31 Abnormal electrocardiogram [ECG] [EKG]; I10 Essential (primary) hypertension; E78.5 Hyperlipidemia, unspecified; F41.9 Anxiety disorder, unspecified; I25.2 Old myocardial infarction; Z95.1 Presence of aortocoronary bypass graft
CPT/HCPCS: 36415; 74177; 80053; 81001; 83690; 85025; 93005; 99284; J2405; J7030; Q9967

== ENCOUNTER → 2022-06-09 | Outpatient (CLI) | payer OTHER ==
[~2022-06-09] MED LIST changes: +LOMOTIL TABLET1 EACH PO
== END ==
LOC: MRI 09:33
PROVIDERS: ATTEND Family Medicine
DX: S83.422D Sprain of lateral collateral ligament of left knee, subsequent encounter (principal)